=== PATIENT | female | born 1950 | race Two or more races ===

== ENCOUNTER 2021-01-04 20:04 | Inpatient (IN) | payer MEDICARE, BC ==
[~2021-01-04] VITALS: Ht 165.1 cm; Wt 39.9 kg
[2021-01-04] MEDS ORDERED: ACETAMINOPHEN 325 MG TABLET PO PRN (21:00)
[2021-01-04] MEDS ORDERED: LORAZEPAM 0.5 MG TABLET PO PRN (21:00)
[2021-01-04] MEDS ORDERED: MAGNESIUM HYDROXIDE 30 ML UDC PO PRN (21:00)
[2021-01-04] MEDS ORDERED: MAG HYDROX/AL HYDROX/SIMETH 30 ML UDC PO PRN (21:00)
[2021-01-04] MEDS ORDERED: BLOOD SUGAR DIAGNOSTIC 1 EACH STRIP IN ONE (21:00)
--- NOTE | 2021-01-04 23:55 | NUR ---
GPS COMMERCIAL ADMINISTRATOR NOTES: RECEIVED A 70 Y/O FEMALE DIRECT ADMIT FROM [facility]. PATIENT ARRIVED THIS UNIT ON A W/C WITH ONE STAFF. HOLD WAS PLACED ON 01/04/21 @ 0815. PER HOLD PATIENT WAS CONFUSED, DELUSIONAL, WANTS TO "TURN MYSELF IN" TO [employer] FOR UNCLEAR REASONS. HAS NOT BEEN EATING AND DRINKING, MALNOURISHED AND DEHYDRATED. UNABLE TO CARE FOR SELF. UPON FACE TO FACE EVALUATION, PATIENT IS A/O X3, ANXIOUS, DISORGANIZED, GUARDED, MALNOURISHED, COOPERATIVE. SKIN ASSESSMENT DONE/SKIN INTACT, ACCU CHEK DONE, BS 148MG/DL, PER PATIENT SHE HAD JUST HAD CAKE AND IS NOT DIABETIC OR HAS ANY MEDICAL CONDITION. MRSA BOTH NARES SWABBED AND SENT TO LAB. PATIENT REFUSED TO SIGN ALL ADMISSION PAPERWORK. PATIENT HAS NO C/O PAIN AT THIS TIME. PATIENT HAS NO S/S OF DISTRESS. PATIENT BREATHING IS EVEN AND UNLABORED WITH EQUAL RISE AND FALL OF THE CHEST, ON ROOM AIR. PATIENT IS UNDER THE PSYCHIATRIC CARE OF DR. LOJA AND THE MEDICAL CARE OF DR LEVINE. PATIENT BELONGINGS WERE INVENTORIED AND CHECKED FOR CONTRABAND. PATIENT WAS OFFERED FLUID AND SNACKS TOLERATED. PATIENT BED IS IN LOWEST POSITION AND LOCKED WITH SIDE RAILS UP X 2 FOR SAFETY. BED ALARM ON FOR SAFETY. WILL CONTINUE TO MONITOR PATIENT Q15 FOR MOOD, SAFETY AND BEHAVIOR.
[2021-01-05 07:15] LABS: CHOLESTEROL 319 mg/dL (<200); HDL CHOLESTEROL 95 mg/dL (40-60); LDL 182 mg/dL (0-99); TRIGLYCERIDES 97 mg/dL (30-150)
[2021-01-05 07:16] LABS: ALBUMIN 3.7 g/dL (3.4-5.0); BILIRUBIN,TOTAL 0.5 mg/dL (0.2-1.0); CREATININE 0.9 mg/dL (0.6-1.3); TOTAL PROTEIN, SERUM 7.2 g/dL (6.4-8.2)
[2021-01-05 08:00] VITALS: BP 148/57
[2021-01-05] MEDS ORDERED: TRIA0.252 PO (08:56)
--- NOTE | 2021-01-05 10:36 | NUR ---
BRIONNA Initial Discharge Plan: Patient lives at home alone located at [address] [place] [address]; ([phone]). Patient reported she has two grown sons who live in the [place] Area, unable to find contact information. BRIONNA will work with the MD and pt to coordinate appropriate discharge.
--- NOTE | 2021-01-05 10:51 | NUR ---
Social Work Note/Substance Abuse Intervention: Patient was provided with a brief substance abuse intervention and referred to [facility] ([phone]), [facility] ([phone]), and [facility] ([phone]) for drinking occasionally.
[2021-01-05 16:22] VITALS: BP 154/77
[2021-01-05 20:13] VITALS: BP 113/74
[2021-01-05 20:17] VITALS: BP 141/75
[2021-01-05] MEDS: OLANZAPINE 5 MG TABLET PO SCH (21:34)
[2021-01-06 08:00] VITALS: BP 137/76
--- NOTE | 2021-01-06 12:15 | NUR ---
SW Family Contact: SW contacted pt's son Julee ([phone]) and left a detailed voicemail to call this SW to discuss treatment/discharge plan.
--- NOTE | 2021-01-06 12:15 | NUR ---
BRIONNA Note: SW discussed discharge planning with pt and she stated that she would want to return back home as her son Julee ([phone]) is involved in patient's care.
--- NOTE | 2021-01-06 13:40 | NUR ---
BRIONNA Family Contact: BRIONNA spoke with patient's son Julee ([phone]) who stated that he is currently at the patient's house and is working from home. He stated he lives in [place] but came to visit his mother and to take care of pt. He reported that he is the DPOA and will send this SW the documents. Son stated he would want pt back home upon discharge and will picking tech pt once stable.
--- NOTE | 2021-01-06 14:42 | NUR ---
BRIONNA Family Contact: BRIONNA spoke with patient's son Julee ([phone]) and he sent DPOA documents. He is the DPOA.
[2021-01-06 16:00] VITALS: BP 140/65
[2021-01-06 20:00] VITALS: BP 143/73
[2021-01-06] MEDS: OLANZAPINE 5 MG TABLET PO SCH (20:55)
[2021-01-07 08:00] VITALS: BP 146/71
--- NOTE | 2021-01-07 15:27 | NUR ---
SW Friend Contact: SW contacted patient's friend Krystina ([phone]). Patient wanted this SW to contact patient's friend. SW left a voicemail.
[2021-01-07 16:00] VITALS: BP 137/57
[2021-01-07 19:57] VITALS: BP 137/62
[2021-01-07] MEDS: OLANZAPINE 5 MG TABLET PO SCH (21:13)
[2021-01-07] MEDS: TEMAZEPAM 7.5 MG CAPSULE PO PRN (21:51)
--- NOTE | 2021-01-07 21:52 | NUR ---
PS-RN NOTES: INSOMNIA PATIENT C/O INABILITY TO SLEEP. PRN RESTORIL 7.5MG PO GIVEN ORDERED PER PT'S REQUEST. WILL CONTINUE TO MONITOR.
[2021-01-08 08:00] VITALS: BP 128/71
[2021-01-08 16:00] VITALS: BP 127/62
[2021-01-08 19:55] VITALS: BP 152/71
[2021-01-08] MEDS: OLANZAPINE 5 MG TABLET PO SCH (21:35)
[2021-01-08] MEDS: TEMAZEPAM 7.5 MG CAPSULE PO PRN (22:00)
--- NOTE | 2021-01-08 22:02 | NUR ---
GPS RN NOTES: Restoril 7.5mg given PO at 2200. Will continue to monitor.
--- NOTE | 2021-01-09 06:58 | NUR ---
GPS RN CLOSING NOTES: PATIENT IS AWAKE, A/O X3. PATIENT SLEPT 8HRS THIS SHIFT. SHOWERED THIS MORNING. NO S/S OF DISTRESS. RESPIRATION EVEN AND UNLABORED WITH EQUAL RISE AND FALL OF THE CHEST, ON ROOM AIR. ALL PATIENT CARE NEEDS HAVE BEEN MET ANTICIPATED. WILL CONTINUE TO MONITOR AND AND ENDORSE TO AM SHIFT.
[2021-01-09 08:00] VITALS: BP 129/64
[2021-01-09 16:00] VITALS: BP 145/73
[2021-01-09 20:00] VITALS: BP 133/67
[2021-01-09] MEDS: OLANZAPINE 5 MG TABLET PO SCH (21:40)
[2021-01-09] MEDS: TEMAZEPAM 7.5 MG CAPSULE PO PRN (22:38)
--- NOTE | 2021-01-09 22:39 | NUR ---
PS-RN NOTES: INSOMNIA PATIENT C/O INABILITY TO SLEEP. PRN RESTORIL 7.5MG PO GIVEN ORDERED. WILL CONTINUE TO MONITOR.
[2021-01-10 08:00] VITALS: BP 120/57
[2021-01-10 16:00] VITALS: BP 136/64
[2021-01-10 19:35] VITALS: BP 130/87
[2021-01-10] MEDS: OLANZAPINE 5 MG TABLET PO SCH (21:00)
[2021-01-10] MEDS: TEMAZEPAM 7.5 MG CAPSULE PO PRN (21:34)
--- NOTE | 2021-01-10 21:34 | NUR ---
GPS-RN NOTES: INSOMNIA PATIENT C/O INABILITY TO SLEEP. PRN RESTORIL 7.5MG PO GIVEN ORDERED. WILL CONTINUE TO MONITOR.
[2021-01-11 08:00] VITALS: BP 145/70
--- NOTE | 2021-01-11 11:12 | NUR ---
Court Hearing: Patient's court hearing for 5250 was today and it was upheld for 5250. Addendum: 01/11/21 at [address] Hearing: Patient's court hearing for 5250 was today and it was upheld for GD.
[2021-01-11 16:00] VITALS: BP 126/64
[2021-01-11 19:48] VITALS: BP 127/57
[2021-01-11] MEDS: OLANZAPINE 5 MG TABLET PO SCH (21:21)
[2021-01-11] MEDS: TEMAZEPAM 7.5 MG CAPSULE PO PRN (21:22)
[2021-01-12 08:00] VITALS: BP 111/61
[2021-01-12 16:00] VITALS: BP 129/57
[2021-01-12 20:15] VITALS: BP 140/71
[2021-01-12 20:23] VITALS: BP 140/71
[2021-01-12] MEDS: OLANZAPINE 5 MG TABLET PO SCH (21:25)
[2021-01-12] MEDS: TEMAZEPAM 7.5 MG CAPSULE PO PRN (21:45)
--- NOTE | 2021-01-12 21:48 | NUR ---
RN NOTE: INSOMNIA PATIENT C/O INABILITY TO SLEEP AND REQUESTED TO TAKE SLEEPING MEDICINE AT THIS TIME. PRN RESTORIL 7.5 MG 1 CAP PO ADMINISTERED.
[2021-01-13 08:00] VITALS: BP 145/69
--- NOTE | 2021-01-13 11:56 | NUR ---
BRIONNA Family Contact: SW spoke with patient's son Julee ([phone]) and left a voicemail of pt's discharge.
[2021-01-13 16:00] VITALS: BP 140/63
--- NOTE | 2021-01-13 19:30 | NUR ---
RN NOTES RECEIVED PT FROM AM SHIFT RN FOR WILMA. PT IN NO ACUTE DISTRESS AT THIS TIME. NO SOB NOTED. PATIENT'S BREATHING IS EVEN AND UNLABORED. SAFETY PRECAUTIONS IN PLACE. BED IN LOW LOCKED POSITION. WILL CONTINUE TO MONITOR Q15MIN ROUNDS FOR SAFETY AND BEHAVIOR.
[2021-01-13 20:00] VITALS: BP 137/58
[2021-01-13] MEDS: OLANZAPINE 5 MG TABLET PO SCH (21:19)
--- NOTE | 2021-01-14 06:57 | NUR ---
RN NOTES ENDORSED PT IN STABLE CONDITION TO AM SHIFT RN FOR WILMA.
[2021-01-14 08:00] VITALS: BP 137/66
[2021-01-14 16:00] VITALS: BP 155/99
[2021-01-14 20:00] VITALS: BP 159/69
[2021-01-14] MEDS: OLANZAPINE 5 MG TABLET PO SCH (22:01)
[2021-01-14] MEDS: TEMAZEPAM 7.5 MG CAPSULE PO PRN (22:46)
--- NOTE | 2021-01-15 06:41 | NUR ---
01/14/21 6422 Temazepam 7.5mg given per patient requested. Effective. Vital signs WNL.
[2021-01-15 08:00] VITALS: BP 112/60
[2021-01-15 15:44] VITALS: BP 140/69
--- NOTE | 2021-01-15 19:15 | NUR ---
AUTO SPECIALTY SERVICES MANAGER NOTES: RECEIVED PT AWAKE SITTING IN BED. CALM. A/O X3. RESPONDS TO INTERNAL STIMULI AND IS COOPERATIVE. ON ROOM AIR. BREATHING EVEN AND UNLABORED WITH EQUAL RISE AND FALL OF THE CHEST. NO ACUTE DISTRESS NOTED. NO COMPLAINTS OF PAIN AT THIS TIME. PT DENIES SUICIDE IDEATIONS AND HOMICIDAL IDEATIONS. SAFETY MEASURES IN PLACE. WILL CONTINUE TO MONITOR Q15 MINS WITH THE HELP OF STAFF TO MAINTAIN SAFETY.
[2021-01-15 20:52] VITALS: BP 141/71
[2021-01-15] MEDS: OLANZAPINE 10 MG TABLET PO SCH (21:19)
[2021-01-15] MEDS: TEMAZEPAM 7.5 MG CAPSULE PO PRN (21:25)
--- NOTE | 2021-01-15 23:00 | NUR ---
COMMERCIAL ARTIST LETTERING NOTES: GIVEN PRN RESTORIL 7.5 MG PO PER PATIENTS REQUEST D/T INSOMNIA. EFFECTIVE. PT SLEEPING. SIDE RAILS UP X2 FOR SAFETY. BED IS LOCKED AND LOW. WILL CONTINUE TO MONITOR FOR SAFETY.
[2021-01-16 08:00] VITALS: BP 120/62
[2021-01-16 16:00] VITALS: BP 113/60
[2021-01-16] MEDS: MEGESTROL ACETATE SUSP 400 MG/10 ML UDC PO SCH (17:00)
[2021-01-16 19:52] VITALS: BP 149/62
[2021-01-16] MEDS: OLANZAPINE 10 MG TABLET PO SCH (21:14)
[2021-01-16] MEDS: TEMAZEPAM 7.5 MG CAPSULE PO PRN (21:52)
--- NOTE | 2021-01-16 21:54 | NUR ---
RN NOTES: INSOMNIA PT. C/O UNABLE TO SLEEP RESTORIL 7.5 MG PO PRN GIVEN ,WILL CONTINUE TO MONITOR.
[2021-01-17 08:00] VITALS: BP 134/66
[2021-01-17] MEDS: MEGESTROL ACETATE SUSP 400 MG/10 ML UDC PO SCH ×3 (08:54→16:55)
--- NOTE | 2021-01-17 10:00 | NUR ---
GPS/RN PT REFUSED MEGESTROL OFFERED X3
[2021-01-17 16:00] VITALS: BP 137/62
[2021-01-17 19:58] VITALS: BP 127/60
[2021-01-17] MEDS: OLANZAPINE 10 MG TABLET PO SCH (21:04)
[2021-01-17] MEDS: TEMAZEPAM 7.5 MG CAPSULE PO PRN (21:44)
--- NOTE | 2021-01-17 21:44 | NUR ---
GPS-RN NOTES: INSOMNIA PATIENT C/O INABILITY TO SLEEP. PRN RESTORIL 7.5MG PO GIVEN. WILL CONTINUE TO MONITOR.
[2021-01-18 08:00] VITALS: BP 140/73
--- NOTE | 2021-01-18 08:08 | NUR ---
SW Discharge Note: Patient will be discharged back home located at [address] [place] [id number]; ([phone]). Patients rajesh Ladd ([phone]) will pickle maker pt between 11am-12pm. SW contacted patients rajesh Ladd ([phone]) and notified of pts discharge. Patient is alert and oriented x3, and is happy to be going back home. Patient denies suicidal or homicidal ideation. Patient denies visual/auditory hallucinations. Patient will follow up with (Returned Goods Repairer) Dr. Caleb Londono located at [facility] located at [address] [place] [id number]; ([phone]) on February 14 at 1PM and will provide psychotropic medications. Patient was provided with a brief substance abuse intervention and referred to [facility] ([phone]), [facility] ([phone]), and [facility] ([phone]) for alcohol abuse. Patient presents with euthymic mood and congruent affect.
[2021-01-18] MEDS: MEGESTROL ACETATE SUSP 400 MG/10 ML UDC PO SCH (08:26)
--- NOTE | 2021-01-18 09:00 | NUR ---
RN NOTE- PT IN HALLS ,AWAKE,ALERT CALM,NO ACUTE DISTRESS NOTED.AMBULATORY STEADY GAIT. ABLE TO MAKE NEEDS KNOWN. WILL CONT. MONITORING FOR SAFETY AND BEHAVIOR.
--- NOTE | 2021-01-18 11:25 | NUR ---
RN NOTE DISCHARGE / PT DC HOME AT THIS TIME INTO CARE OF FAMILY. VS STABLE, ALERT ORIENTED TO PERSON PLACE PURPOSE. MED COMPLIANT, DENIES SI HI AH VH. BELONGINGS RETURNED TO PT, ID [id number] REMOVED, VALUABLES SIGNED FOR. ESCORTED OFF UNIT BY THIS RN
== END 2021-01-18 11:25 | disposition home or self-care (01) | DRG 885 ==
LOC: GPS 20:04
PROVIDERS: ADMIT Psychiatry & Neurology Psychiatry; ATTEND Family Medicine
DX: F29 Unspecified psychosis not due to a substance or known physiological condition (principal); F01.50 Vascular dementia, unspecified severity, without behavioral disturbance, psychotic disturbance, mood disturbance, and anxiety; E43 Unspecified severe protein-calorie malnutrition; E87.2 Acidosis; F23 Brief psychotic disorder; R64 Cachexia; Z68.1 Body mass index [BMI] 19.9 or less, adult; F41.9 Anxiety disorder, unspecified; E86.9 Volume depletion, unspecified; F32.A Depression, unspecified; Z73.6 Limitation of activities due to disability; G47.00 Insomnia, unspecified
CPT/HCPCS: 36415; 80053-TC; 80061-TC; 82962-TC; 87081-TC